=== PATIENT | male | born 1945 | race Two or more races ===

== ENCOUNTER 2020-05-24 10:44 | Outpatient (CLI) | payer OTHER ==
[~2020-05-24] VITALS: Ht 177.8 cm; Wt 77.1 kg
== END 2020-05-24 15:05 | disposition home or self-care (01) ==
LOC: OFIC 805 10:44
PROVIDERS: ATTEND Otolaryngology
DX: H61.23 Impacted cerumen, bilateral (principal)

== ENCOUNTER → 2020-05-31 | Outpatient (CLI) | payer OTHER | END | disposition home or self-care (01) | LOC: OFIC 805 08:26 | PROVIDERS: ATTEND Otolaryngology | DX: H91.8X1 Other specified hearing loss, right ear (principal); H91.23 Sudden idiopathic hearing loss, bilateral ==